=== PATIENT | female | born 1945 | race Caucasian/White ===

== ENCOUNTER 2020-08-31 09:10 | Emergency (ER) | payer BC, SELFPAY ==
[2020-08-31] VITALS (7 sets, daily range): BP systolic 97–212; BP diastolic 56–100; PULSE 70–86; RESP 16; TEMP 36.6; O2SAT 99–100; BMI 21.6
--- NOTE | 2020-08-31 09:28 | ECG_ITS ---
[facility] Test Date: 2020-08-31 Pat Name: Janiya Perez Department: Room: Gender: Female Certified Pediatric Nurse Practitioner: : 1945 Requested By: Johnie Tejeda Order Number: [id number] Carlos MD: Rafal Wei M.D. Measurements Intervals [place] Rate: 70 P: 60 CT: 155 QRS: 3 QRSD: 94 T: 30 QT: 415 QTc: 450 Interpretive Statements SINUS RHYTHM SEPTAL MYOCARDIAL INFARCTION , OF INDETERMINATE AGE [40+ ms Q WAVE IN V1/V2] Compared to ECG 02/27/2018 20:06:01 Myocardial infarct finding now present Electronically Signed On 08-31-2020 13:05:06 TIMBER TREATING TANK OPERATOR by Rafal Wei M.D. [email or web address] of delta regional medical centerSirenas Marine Discoverykettering health washington township.Inhibitex/store/NU/[id number] f
[2020-08-31 09:45] LABS: Basophils % 0.4 %; Eosinophils # 0.1 10^3/uL (0.0-0.8); Eosinophils % 1.4 %; Hemoglobin 13.1 g/dL (11.5-15.3); Lymphocytes # 1.4 10^3/uL (0.8-4.8); Mean Corpuscular Hemoglobin 28.9 pg (28.0-34.0); Mean Corpuscular Volume 90.3 fL (81-99); Mean Platelet Volume 9.7 fL (7.4-10.4); Monocytes # 0.3 10^3/uL (0.2-0.9); Monocytes % 6.5 %; Neutrophils # 3.23 10^3/uL (1.8-7.7); Neutrophils % 63.5 %; Nucleated Red Blood Cells % 0 %; Platelet Count 210 10^3/cmm (130-400); Red Blood Count 4.54 10^6/uL (4.1-5.3); Red Cell Distribution Width 12.5 % (12.1-15.1); White Blood Count 5.1 10^3/uL (4.0-10.0)
[2020-08-31] MEDS: amlodipine 10 mg Tablet PO (09:49)
[2020-08-31] MEDS: hyDRALAzine 20 mg/mL INJ 1 mL 10 MG IVP (09:49)
--- NOTE | 2020-08-31 09:51 | W.ED.GENADLT ---
HPI - General Adult General: Chief complaint: General Medical Stated complaint: Fever and fluctuating BP, n/v, weakness Time Seen by Provider: 08/31/20 09:23 History of Present Illness: HPI narrative: 74 yo female who recently started on lisinopril. She was given a prescription by a friend who is a physician. She notes since then her blood pressure has been going up and down she had the sense she was going to pass out earlier today. That resolved. She did test positive for Covid at the beginning of this month her symptoms for the most part have resolved. She denies any chest pain no nausea vomiting or diarrhea. Denies shortness of breath. Some of her symptoms are postural. Onset (ago): minute(s) Relieving factors: none Exacerbating factors: none Associated symptoms: Reports nausea; Deny chest pain, confusion, cough, diaphoresis, decreased appetite, dyspnea, fevers/chills, headache(s), malaise, rash, palpitations, seizures, short of breath, syncope, vomiting or weakness Review of Systems Const: Denies: malaise or diaphoresis ENMT: Denies: throat pain, ear or mastoid pain, nasal discharge or nasal congestion Card: Denies: chest pain, palpitations or syncope Resp: Denies: dyspnea GI: Reports: nausea; Denies: vomiting : Denies: flank pain, difficulty voiding, dysuria, urinary frequency or urinary urgency Skin/Breast: Denies: rash Neuro: Denies: headache(s) or confusion PFS ED PFSH: Medical History (Updated 09/01/20 @ 10:40 by Johnie Whitfield DO) Benign essential HTN Physical Exam Const: COMMON NORMALS: no acute distress GENERAL APPEARANCE: cooperative and comfortable ORIENTATION/CONSCIOUSNESS: Yes awake, Yes oriented to person, Yes oriented to place and Yes oriented to time HENMT: COMMON NORMALS: normocephalic, atraumatic and hearing grossly normal bilaterally HEAD & SCALP: normocephalic and atraumatic Eye: COMMON NORMALS: Equal, round and reactive pupils present, EOMs intact bilaterally, conjunctivae normal and no scleral icterus CONJUNCTIVA: Yes conjunctivae normal PUPIL: Yes Equal, round and reactive pupils present Neck/C-Spine: COMMON NORMALS: no JVD Lymph: LYMPHATIC: no lymphadenopathy noted and no lymphedema noted Resp: COMMON NORMALS: normal respiratory effort, No retractions, No use of accessory muscles and clear to auscultation bilaterally AUSCULTATION: clear to auscultation bilaterally Cardio: COMMON NORMALS: no JVD, regular rate, regular rhythm and No murmurs present (Cardio) RATE: regular rate RHYTHM: regular rhythm GI: COMMON NORMALS: Soft to palpation and No hepatosplenomegaly present AUSCULTATION: Yes normoactive bowel sounds PALPATION: Yes Soft to palpation, No Tenderness to palpation present (GI), No Guarding due to palpation present (GI) and Yes No hepatosplenomegaly present Extremity: COMMON NORMALS: normal to inspection, capillary refill normal, no clubbing, cyanosis or edema, no calf tenderness and no pedal edema Neuro: SENSORIUM/ORIENTATION: Yes oriented to person, Yes oriented to place and Yes oriented to time Skin: COMMON NORMALS: no rashes or lesions noted GENERAL SKIN EXAM: no rashes or lesions noted Course Vital Signs: Vital signs: Vital Signs Temperature 97.9 F 08/31/20 09:18 Pulse Rate 74 08/31/20 13:13 Respiratory Rate 16 08/31/20 13:13 Blood Pressure 111/62 08/31/20 13:13 Pulse Oximetry 99 08/31/20 13:13 MDM - General Adult MDM Narrative: Medical decision making narrative: Labs reviewed to the patient. Her blood pressure is improved after medications given we will discharge her home we will add amlodipine continue lisinopril follow-up with primary care doctor within the next week return if has further problems. Lab Data: Labs: Lab Results 08/31/20 08/31/20 08/31/20 Range/Units 09:41 09:41 09:41 WBC 5.1 (4.0-10.0) 10^3/ uL RBC 4.54 (4.1-5.3) 10^6/u L Hgb 13.1 (11.5-15.3) g/dL Hct 41.0 (37.0-47.0) % MCV 90.3 (81-99) fL MCH 28.9 (28.0-34.0) pg MCHC 32.0 (30.0-36.0) g/dL RDW 12.5 (12.1-15.1) % Plt Count 210 (130-400) 10^3/c mm MPV 9.7 (7.4-10.4) fL Neut % (Auto) 63.5 % Lymph % (Auto) 28.0 % [place] % (Auto) 6.5 % Eos % (Auto) 1.4 % Baso % (Auto) 0.4 % Neut # (Auto) 3.23 (1.8-7.7) 10^3/u L Lymph # (Auto) 1.4 (0.8-4.8) 10^3/u L [place] # (Auto) 0.3 (0.2-0.9) 10^3/u L Eos # (Auto) 0.1 (0.0-0.8) 10^3/u L Baso # (Auto) 0.0 (0.0-0.1) 10^3/u L Nucleated RBC % (a uto) 0 % Nucleated RBCs # 0.0 /100WBC Sodium 142 (136-145) mmol/L Potassium 3.7 (3.5-5.1) mmol/L Chloride 104 (98-107) mmol/L Carbon Dioxide 27 (22-29) mmol/L Anion Gap 14.7 (5-19) BUN 14 (8-23) mg/dL Creatinine 0.7 (0.5-0.9) mg/dL GFR Calculation Not Reportable Glucose 104 (65-115) mg/dL Calculated Osmolal ity 295 (285-295) mOsm/k g Calcium 8.7 (8.5-10.5) mg/dL Total Bilirubin 0.3 (0.15-1.2) mg/dL AST 18 (0-32) U/L ALT 16 (0-33) U/L Alkaline Phosphata se 102 (35-105) IU/L Troponin T Baselin e 7 (0-10) ng/L Troponin T 120 Min iggy (0-10) ng/L Delta Troponin T (0-10) ABS# Total Protein 6.6 (6.6-8.7) g/dL Albumin 4.2 (3.5-5.2) g/dL Globulin 2.4 (1.3-4.6) g/dL /28/20 Range/Units 11:48 WBC (4.0-10.0) 10^3/ uL RBC (4.1-5.3) 10^6/u L Hgb (11.5-15.3) g/dL Hct (37.0-47.0) % MCV (81-99) fL MCH (28.0-34.0) pg MCHC (30.0-36.0) g/dL RDW (12.1-15.1) % Plt Count (130-400) 10^3/c mm MPV (7.4-10.4) fL Neut % (Auto) % Lymph % (Auto) % [place] % (Auto) % Eos % (Auto) % Baso % (Auto) % Neut # (Auto) (1.8-7.7) 10^3/u L Lymph # (Auto) (0.8-4.8) 10^3/u L [place] # (Auto) (0.2-0.9) 10^3/u L Eos # (Auto) (0.0-0.8) 10^3/u L Baso # (Auto) (0.0-0.1) 10^3/u L Nucleated RBC % (a uto) % Nucleated RBCs # /100WBC Sodium (136-145) mmol/L Potassium (3.5-5.1) mmol/L Chloride (98-107) mmol/L Carbon Dioxide (22-29) mmol/L Anion Gap (5-19) BUN (8-23) mg/dL Creatinine (0.5-0.9) mg/dL GFR Calculation Glucose (65-115) mg/dL Calculated Osmolal ity (285-295) mOsm/k g Calcium (8.5-10.5) mg/dL Total Bilirubin (0.15-1.2) mg/dL AST (0-32) U/L ALT (0-33) U/L Alkaline Phosphata se (35-105) IU/L Troponin T Baselin e (0-10) ng/L Troponin T 120 Min iggy 6.23 (0-10) ng/L Delta Troponin T -0.77 L (0-10) ABS# Total Protein (6.6-8.7) g/dL Albumin (3.5-5.2) g/dL Globulin (1.3-4.6) g/dL Discharge Plan Discharge Patient Disposition: Home Clinical Impression: Benign essential HTN Condition: Stable Prescriptions: New amlodipine 5 mg tablet 5 mg PO DAILY Qty: 30 RF: 0 No Action lisinopril 20 mg tablet 20 mg PO DAILY@0800 RF: 0 Vitamin D3 1 tab PO DAILY@0800 RF: 0 zinc 1 mg PO DAILY@0800 RF: 0 Discharge Orders: Discharge ED (Routine); Ordered 08/31/20 Ordered By: Johnie Whitfield Referrals: Christine Forbes MD [Primary Care Provider] - Discharge Diet: Usual diet Discharge Activity: Increase activity as tolerated Activity Restrictions/Additional Instructions: Take amlodipine in addition of the lisinopril you are currently on. Follow-up with Dr. Forbes within the next 3 days. Return to emergency room for further problems. Coding Level of Care Code ED Quality Specialist for Cuco Asencio
[2020-08-31 10:04] LABS: Alanine Aminotransferase 16 U/L (0-33); Albumin Level 4.2 g/dL (3.5-5.2); Alkaline Phosphatase 102 IU/L (35-105); Anion Gap 14.7 (5-19); Aspartate Amino Transferase 18 U/L (0-32); Blood Urea Nitrogen 14 mg/dL (8-23); Calcium 8.7 mg/dL (8.5-10.5); Carbon Dioxide 27 mmol/L (22-29); Chloride 104 mmol/L (98-107); Creatinine Clr Calc Pharmacy 57.1347; Globulin 2.4 g/dL (1.3-4.6); Glucose 104 mg/dL (65-115); Osmolality Calculated 295 mOsm/kg (285-295); Potassium 3.7 mmol/L (3.5-5.1); Sodium 142 mmol/L (136-145); Total Bilirubin 0.3 mg/dL (0.15-1.2); Total Protein 6.6 g/dL (6.6-8.7)
[2020-08-31 10:58] LABS: Troponin(5th) Baseline 7 ng/L (0-10)
[2020-08-31 12:17] LABS: Troponin 5 2HR 6.23 ng/L (0-10)
[2020-08-31 12:19] LABS: Troponin 5 2HR Delta -0.77 ABS# (0-10)
--- NOTE | 2020-08-31 12:34 | ECG_ITS ---
[facility] Test Date: 2020-08-31 Pat Name: Janiya Perez Department: Room: Gender: Female Appeals Coordinator: : 1945 Requested By: Johnie Tejeda Order Number: [id number] Carlos MD: Rafal Wei M.D. Measurements Intervals [place] Rate: 67 P: -9 NE: 145 QRS: 8 QRSD: 101 T: 24 QT: 416 QTc: 440 Interpretive Statements SINUS RHYTHM NONSPECIFIC T-WAVE ABNORMALITY Compared to ECG 08/31/2020 09:35:17 T-wave abnormality now present Myocardial infarct finding no longer present Electronically Signed On 08-31-2020 17:00:05 CREDIT CONTROLLER by Rafal Wei M.D. [email or web address] [email or web address] [facility] [email or web address].[email or web address]/store/[id number]
== END 2020-08-31 13:13 | disposition home or self-care (01) ==
PROVIDERS: Emergency Provider Family Medicine; PCP Family Medicine
DX: I10 Essential (primary) hypertension (principal)
CPT/HCPCS: 12345; 36415; 80053; 84484; 85025; 93005; 96374; 99283; J0360

== ENCOUNTER 2021-08-31 10:24 | Outpatient (CLI) | payer MEDICARE, SELFPAY ==
[2021-08-31 10:49] VITALS: BP 152/87; PULSE 61; RESP 18; TEMP 36.1; O2SAT 97; BMI 21.6
[2021-08-31 11:55] VITALS: BP 145/85; PULSE 59; RESP 17; TEMP 36.1; O2SAT 99
[2021-08-31 12:51] VITALS: BP 144/80; PULSE 58; RESP 18; TEMP 36.1; O2SAT 99
[2021-08-31 12:53] VITALS: BP 144/80; PULSE 58; RESP 18; TEMP 36.3; O2SAT 99
== END 2021-08-31 10:25 | disposition home or self-care (01) ==
LOC: OPS 10:32
PROVIDERS: PCP Family Medicine; Visit Provider Nurse Practitioner Family
DX: U07.1 COVID-19 (principal)
CPT/HCPCS: 96365

== ENCOUNTER 2025-04-09 15:26 | Outpatient (CLI) | payer OTHER, SELFPAY ==
--- NOTE | 2025-04-09 15:49 | MM_ITS ---
WS: [id number] BILATERAL 3D TOMOSYNTHESIS DIGITAL SCREENING MAMMOGRAPHY WITH CAD CLINICAL INFORMATION: SCREENING MAMMOGRAM HISTORY: Screening mammogram. No current complaints. COMPARISON: 2023 TECHNIQUE: Bilateral CC and MLO views. FINDINGS: The breasts are composed of heterogeneous fibroglandular density tissue, which can limit the detection of small underlying mass lesions. No suspicious mass, asymmetry, calcifications, or architectural distortion. No evidence of malignancy. Incidental benign calcifications. Biopsy clip LEFT breast. MM/MM [facility] tomosynthesis [id number] IMPRESSION: DENSITY: The breasts are heterogeneously dense, which may obscure small masses. BI-RADS: 2 - Benign FOLLOW UP: 1 Year Follow-up Recommend return to annual screening mammography.
== END 2025-04-09 15:27 | disposition home or self-care (01) ==
LOC: RAD 15:26
PROVIDERS: PCP Family Medicine; Visit Provider Family Medicine
DX: Z12.31 Encounter for screening mammogram for malignant neoplasm of breast (principal); R92.333 Mammographic heterogeneous density, bilateral breasts; R92.1 Mammographic calcification found on diagnostic imaging of breast
CPT/HCPCS: 77063; 77067